=== PATIENT | male | born 1975 | race Caucasian/White ===

== ENCOUNTER 2021-06-21 12:30 | Emergency (ER) | payer BC, OTHER ==
[2021-06-21] MEDS ORDERED: diphenhydrAMINE 50 MG/ML SDV IVPUSH PRN (15:05)
[2021-06-21] MEDS ORDERED: methylPREDNISolone Sodium Succinate 125 MG/2 ML SDV IVPUSH PRN (15:05)
[2021-06-21] MEDS ORDERED: Famotidine 20 MG/2 ML SDV IVPUSH PRN (15:05)
[2021-06-21] MEDS ORDERED: EPINEPHrine 1 MG/ML SDV IM PRN (15:05)
[2021-06-21] MEDS ORDERED: Ketorolac 30 MG/ML SDV IVPUSH ONE (15:06)
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
[2021-06-21] MEDS ORDERED: Sodium Chloride 0.9% 10 ML Syringe FLUSH SCH (15:15)
--- NOTE | 2021-06-21 15:27 | CR ---
Chest: Portable view of the chest was obtained. Comparison: Prior chest x-ray of 02/19/12. Patchy areas of increased density are seen within the peripheral aspects of both lungs, worse on the right side. Heart size and mediastinum are normal. Bony structures show nothing acute. Impression: 1. Findings compatible with mild COVID pneumonia. Diagnostic code #3
[2021-06-21] MEDS ORDERED: Bamlanivimab 700 MG, ETESEVIMAB 1,400 MG in Sodium Chloride 0.9% 100 ML IV ONE (15:45)
== END 2021-06-21 17:30 | disposition home or self-care (01) ==
LOC: JD.ED 12:30
DX: U07.1 COVID-19 (principal); J12.82 Pneumonia due to coronavirus disease 2019; Z79.82 Long term (current) use of aspirin
CPT/HCPCS: 36415; 71045; 80053; 84484; 85025; 85379; 86140; 93005; 96374; 99285; J1885; M0245; Q0245